=== PATIENT | female | born 1975 | race Caucasian/White ===

== ENCOUNTER 2019-02-17 20:18 | Emergency (ER) | payer OTHER ==
[2019-02-17] MEDS ORDERED: IBUPROFEN 600 MG TAB PO STA (21:05)
[2019-02-17] MEDS ORDERED: ACETAMINOPHEN TAB 500 MG TAB PO STA (21:06)
[2019-02-17] MEDS ORDERED: DIPH,PERTUS(ACELL)TETVAC-LF 0.5 ML VIAL IM ONE (21:06)
--- NOTE | 2019-02-17 22:29 | XR ---
EXAMINATION TYPE: XR toes RT DATE OF EXAM: 02/17/2019 COMPARISON: NONE HISTORY: Fall. Pain TECHNIQUE: 3 views FINDINGS: There is a transverse fracture mid shaft of the proximal phalanx of the little toe. There i s 50% lateral displacement of the distal fragment. There is slight medial angulation. There is no dis location. IMPRESSION: Little toe fracture proximal phalanx as above.
--- NOTE | 2019-02-17 22:31 | ED ---
Lower Extremity Injury HPI - General Chief Complaint: Extremity Injury, Lower Stated Complaint: Toe injury Time Seen by Provider: 02/17/19 20:56 Source: patient Mode of arrival: ambulatory Limitations: no limitations - History of Present Illness Initial Comments: 43-year-old female patient presents to the emergency department today for evaluation of right fifth toe injury. Patient states just prior to arrival she was coming up the stairs when she stubbed her toe when trying to miss stepping on the dog. Patient denies falling, hitting her head, losing consciousness. She is reporting pain to the right fifth toe radiating up her foot. Denies any numbness or tingling. Denies previous injury to this location. Denies any other injuries. Patient denies any headache, neck pain, back pain, chest pain, shortness of breath, dizziness, weakness, abdominal pain, nausea, vomiting, or difficulties with bowel movements or urination. - Related Data Previous Rx's Medication Instructions Recorded Ibuprofen [Motrin] 600 mg PO Q8HR PRN #30 tab 02/17/19 Allergies Allergy/AdvReac Type Severity Reaction Status Date / Time No Known Allergies Allergy Verified 02/17/19 20:52 Review of Systems ROS Statement: Those systems with pertinent positive or pertinent negative responses have been documented in the HPI. ROS Other: All systems not noted in ROS Statement are negative. Past Medical History Past Medical History: No Reported History History of Any Multi-Drug Resistant Organisms: None Reported Past Surgical History: Bariatric Surgery, Section, Cholecystectomy, Tonsillectomy Past Psychological History: No Psychological Hx Reported Smoking Status: Never smoker Past Alcohol Use History: None Reported Past Drug Use History: None Reported General Exam Limitations: no limitations General appearance: alert, in no apparent distress, other (This is a well- developed, well-nourished adult female patient in no acute distress. Vital sign s upon presentation are temperature 98.5F, pulse 87, respirations 16, blood pressure 123/80, pulse ox 98% on room air.) Eye exam: Present: normal appearance, PERRL, EOMI. Absent: scleral icterus, conjunctival injection, periorbital swelling Respiratory exam: Present: normal lung sounds bilaterally. Absent: respiratory distress, wheezes, rales, rhonchi, stridor Cardiovascular Exam: Present: regular rate, normal rhythm, normal heart sounds. Absent: systolic murmur, diastolic murmur, rubs, gallop, clicks Extremities exam: Present: full ROM, tenderness (Over the fifth toe and distal fifth metatarsal. No distal fifth metatarsal tenderness.), normal capillary refill, other (There is soft tissue swelling and ecchymosis noted over the right fifth toe. Physical examination does reveal lateral angulation. Skin to the foot is pink, warm, and dry. Cap refills less than 3 seconds. Pedal pulses are 2+ and equal bilaterally.). Absent: normal inspection, pedal edema, joint swelling, calf tenderness Neurological exam: Present: alert, oriented X3, CN II-XII intact Psychiatric exam: Present: normal affect, normal mood Skin exam: Present: warm, dry, intact, normal color. Absent: rash Course Vital Signs 02/17/19 20:49 Temperature 98.5 F Pulse Rate 87 Respiratory 16 Rate Blood Pressure 123/80 O2 Sat by Pulse 98 Oximetry Medical Decision Making - Medical Decision Making 43-year-old female patient presented to the emergency department today for evaluation of right fifth toe pain after injury. Physical examination did reveal lateral angulation of the toe. X-ray revealed a proximal phalanx fracture of the right fifth toe with lateral displacement. I was able to reduce the fracture and mauro tape the toe. She was placed in an orthopedic shoe. She is instructed to rest, ice, elevate the foot. She'll be discharged to follow-up with her primary care physician for recheck in one to days. Return parameters were discussed in detail. She verbalizes understanding and agrees with this plan. - Radiology Data Radiology results: report reviewed, image reviewed 3 views of the right fifth toe were obtained. Report was reviewed in its entirety. Impression by Dr. De Leon shows little toe fracture proximal phalanx as above. Disposition Clinical Impression: Fracture of fifth toe, right, closed Disposition: HOME SELF-CARE Condition: Good Instructions (If sedation given, give patient instructions): Toe Fracture (ED) Additional Instructions: Rest, ice, elevate the right foot. Keep toes mauro taped. Use postop shoe for ambulation. This should heal and 2-3 weeks. Follow-up with your primary care physician for recheck in 1-2 days. Return to the emergency department immediately for any new, worsening, or concerning symptoms. Prescriptions: Ibuprofen [Motrin] 600 mg PO Q8HR PRN #30 tab PRN Reason: Pain Is patient prescribed a controlled substance at d/c from ED?: No Referrals: Mariangel Hall DO [Primary Care Provider] - 1-2 days Time of Disposition: 22:31
[2019-02-17] MEDS ORDERED: ACET/COD 300 MG/30 MG STARTER PACK 6 TAB BTL PO STA (22:37)
[2019-02-18 04:09] VITALS: BP 114/82; PULSE 70; RESP 18; TEMP 97.7
== END 2019-02-17 23:14 | disposition home or self-care (01) ==
LOC: EC 20:18
DX: S92.511A Displaced fracture of proximal phalanx of right lesser toe(s), initial encounter for closed fracture (principal); Z23 Encounter for immunization; Z98.84 Bariatric surgery status; W22.8XXA Striking against or struck by other objects, initial encounter
CPT/HCPCS: 90471; 90715; 99283

== ENCOUNTER → 2019-08-07 | Outpatient (CLI) | payer OTHER ==
--- NOTE | 2019-08-07 09:59 | CT ---
EXAMINATION TYPE: CT soft tissue neck w con DATE OF EXAM: 08/07/2019 COMPARISON: None HISTORY: Globus CT DLP: 594 mGycm CONTRAST: Patient injected with 100 ml mL of Isovue 300. TECHNIQUE: Axial images at 3 mm thick sections. Reconstructed images in the coronal plane and sagitt al plane are reviewed. FINDINGS: Limited CT sections are obtained the lung apices. The lung apices appear clear. CT neck: The torus tubarius and fossa of Rosenmuller are normal. [employer] spaces are normal. Para nasal sinuses and mastoid air cells are clear. Parotid glands appear normal and symmetrical. Submandibular glands, are normal. Parapharyngeal spac es are normal. No suspicious adenopathy is evident. The hypopharynx appears within normal limits. Vocal cord level appear symmetrical. Thyroid as visualized is normal. The proximal esophagus within the [id number] appears unremarkable. Osseous structures are normal. IMPRESSIONS: 1. Soft tissue the neck appear unremarkable.
[2019-08-10 19:33] LABS: Beef IgG 12.4 mcg/mL (< 2.0); Chicken Meat IgG 2.8 mcg/mL (< 2.0); Pork IgG 4.8 mcg/mL (< 2.0)
[2019-08-20 13:11] LABS: Corn IgG 4.4; Soybean IgG <2.0; Tomato IgG 2.2
[2019-08-20 13:13] LABS: Cow's Milk IgG 4.1
== END | disposition home or self-care (01) ==
LOC: RADCTMAIN 08:13
PROVIDERS: ATTEND Otolaryngology
DX: R09.89 Other specified symptoms and signs involving the circulatory and respiratory systems (principal); J30.89 Other allergic rhinitis
CPT/HCPCS: 86001; 70491; 36415; Q9967